=== PATIENT | female | born 1955 | race Caucasian/White ===

== ENCOUNTER → 2019-01-04 08:54 | Outpatient (CLI) | payer BC, SELFPAY ==
--- NOTE | 2019-01-04 | DI.RAD.S_ITS ---
PROCEDURE: FL SHOULDER INJECTION MR/CT RT INDICATIONS: IMPINGEMENT SYNDROME OF RIGHT TECHNIQUE: The indications, alternatives, benefits, risks, and complications of the procedure were explained to the patient. Written informed consent was obtained and placed in the chart. The shoulder was examined fluoroscopically and a site for needle placement chosen for entry into the glenohumeral joint from an anterior approach. The skin was prepped and draped in a sterile fashion, and 1% lidocaine infiltrated from skin down to joint capsule. A spinal needle was inserted into the glenohumeral joint, and a small amount of iodinated contrast media injected to confirm intra-articular placement of the needle tip. This was followed by approximately 12 mL dilute solution of a gadolinium containing MR contrast agent. The needle was removed and a dressing was applied. The patient was given postprocedural instructions and sent to the MR suite for MR imaging. FINDINGS: A single fluoroscopic spot image demonstrates intra-articular location of injected iodinated contrast. IMPRESSION: Successful fluoroscopically guided administration of dilute Gadolinium solution into the shoulder joint for MR arthrogram. Dictated by: Newton Chino M.D. on 01/04/2019 at 10:40 Approved by: Newton Chino M.D. on 01/04/2019 at 10:40
--- NOTE | 2019-01-04 | DI.MRI.S_ITS ---
PROCEDURE: MR SHOULDER RT W CON INDICATIONS: IMPINGEMENT SYNDROME OF RIGHT TECHNIQUE: After the administration of 12 mL of dilute intra-articular Gadolinium contrast, oblique coronal T1 and T2 spin echo with fat saturation, oblique sagittal T1 spin echo with and without fat saturation, oblique sagittal T2 fast spin echo with fat saturation, axial T1 spin echo with fat saturation through the shoulder. COMPARISON: None. FINDINGS: Image quality: Susceptibility artifact from prior rotator cuff tendon repair is seen.. Rotator cuff: There is full-thickness rupture of the distal supraspinatus and infraspinatus at their insertion on greater tuberosity of humeral head with 3.4 cm medial retraction of torn tendon fibers to the level of acromial clavicular joint. Distal subscapularis tendinosis is seen. Moderate supraspinatus and infraspinatus atrophy is seen on sagittal images. Bones and bursae: No bone marrow contusions or fractures post surgical changes are noted in greater tuberosity of humeral head. Moderate acromioclavicular joint and glenohumeral joint osteoarthritis is seen. No gross marrow edema. No fracture or dislocation. Capsule and soft tissues: Subtle susceptibility artifact involving anterior inferior labrum is seen, which may represent prior Bankart repair, suggest clinical correlation. Underlying anterior inferior labral tear cannot be excluded. The glenohumeral ligaments appear intact. The long head of the biceps tendon is not visualized, suggestive of torn proximal intra-articular portion of long head biceps tendon. The rotator interval appears normal, without fibrosis. The coracohumeral ligament is of normal thickness. No intra-articular bodies. IMPRESSION: 1. Prior rotator cuff tendon repair with post surgical changes. A full-thickness rupture of distal supraspinatus and infraspinatus at its distal insertion with medial retraction of torn tendon fibers to the level of the acromioclavicular joint. 2. No fracture or dislocation. No gross marrow edema. 3. Finding is concerning for an anterior inferior labral tear from 5 to 6:00 position. Evaluation is limited due to susceptibility artifact in this region. 4. Nonvisualization of the intra-articular portion of long head biceps tendon suggestive of proximal biceps tendon rupture. Dictated by: Edwin Rodriguez M.D. on 01/04/2019 at 13:09 Approved by: Edwin Rodriguez M.D. on 01/04/2019 at 13:16
== END ==
PROVIDERS: PCP Internal Medicine; Visit Provider Orthopaedic Surgery
DX: M75.41 Impingement syndrome of right shoulder (principal); M75.122 Complete rotator cuff tear or rupture of left shoulder, not specified as traumatic
CPT/HCPCS: 23350; 73222; 77002